=== PATIENT | male | born 1985 | race Caucasian/White ===

== ENCOUNTER 2021-05-24 20:23 | Emergency (ER) | payer BC, OTHER ==
[~2021-05-24] VITALS: Ht 185.4 cm; Wt 161.0 kg
--- NOTE | 2021-05-24 20:54 | PHYS DOC ---
General Adult EDM: Chief Complaint: BLOOD IN URINE HPI: HPI: Patient is a 35-year-old male being seen in the ER for hematuria and bilateral flank pain that started today. Patient denies dysuria, frequency/urgency, nausea, vomiting, fevers. He has no history of kidney stones. He is mildly tachycardic at heart rate of 108. He is afebrile. (NORBERT GARDNER APRN) Review of Systems: Review of Systems: 14 body systems of the review of systems have been reviewed. See HPI for pertinent positive and negative responses, otherwise all other systems are negative, nonpertinent or noncontributory (NORBERT GARDNER APRN) Physical Exam: PE: Constitutional: Well developed, well nourished, no acute distress, non-toxic appearance. [] HENT: Normocephalic, atraumatic Eyes: PERRL, EOMI, conjunctiva normal, no discharge. [] Neck: Normal range of motion, no stridor Cardiovascular:Heart rate tachycardic rhythm, no murmur [] Lungs & Thorax: Bilateral breath sounds clear to auscultation [] Abdomen: Bowel sounds normal, soft, obese, no tenderness, no masses, no pulsatile masses. [] Skin: Warm, dry, no erythema, no rash. [] Back: No tenderness, no CVA tenderness. [] Extremities: No tenderness, no cyanosis, no clubbing, ROM intact, no edema. [] Neurologic: Alert and oriented X 3, normal motor function, normal sensory function, no focal deficits noted. [] Psychologic: Affect normal, judgement normal, mood normal. [] (NORBERT GARDNER APRN) Current Patient Data: Labs: Laboratory Tests Test 05/24/21 21:15 05/24/21 21:20 Urine Collection Type Unknown Urine Color Brown Urine Clarity Cloudy Urine pH 5.5 Urine Specific [place] >=1.030 Urine Protein 100 mg/dl Urine Glucose (UA) Neg mg/dL Urine Ketones (Stick) Neg mg/dL Urine Blood Large Urine Nitrite Neg Urine Bilirubin Neg Urine Urobilinogen Dipstick 0.2 mg/dL Urine Leukocyte Esterase Neg Urine RBC >40 /HPF Urine WBC 1-4 /HPF Urine Squamous Epithelial Cells Few /LPF Urine Bacteria Mod /HPF Urine Hyaline Casts Occ /HPF Urine Waxy Casts Occ /HPF Urine Mucus Slight /LPF White Blood Count 8.4 x10^3/uL Red Blood Count 5.04 x10^6/uL Hemoglobin 14.5 g/dL Hematocrit 43.8 % Mean Corpuscular Volume 87 fL Mean Corpuscular Hemoglobin 29 pg Mean Corpuscular Hemoglobin Concent 33 g/dL Red Cell Distribution Width 13.7 % Platelet Count 244 x10^3/uL Neutrophils (%) (Auto) 67 % Lymphocytes (%) (Auto) 15 % Monocytes (%) (Auto) 16 % Eosinophils (%) (Auto) 2 % Basophils (%) (Auto) 0 % Neutrophils # (Auto) 5.7 x10^3uL Lymphocytes # (Auto) 1.3 x10^3/uL Monocytes # (Auto) 1.3 x10^3/uL Eosinophils # (Auto) 0.1 x10^3/uL Basophils # (Auto) 0.0 x10^3/uL Sodium Level 142 mmol/L Potassium Level 4.4 mmol/L Chloride Level 105 mmol/L Carbon Dioxide Level 28 mmol/L Anion Gap 9 Blood Urea Nitrogen 19 mg/dL Creatinine 1.2 mg/dL Estimated GFR (Cockcroft-Gault) 68.1 BUN/Creatinine Ratio 16 Glucose Level 111 mg/dL Calcium Level 9.4 mg/dL Total Bilirubin 0.2 mg/dL Aspartate Amino Transf (AST/SGOT) 33 U/L Alanine Aminotransferase (ALT/SGPT) 72 U/L Alkaline Phosphatase 112 U/L Total Protein 7.0 g/dL Albumin 3.6 g/dL Albumin/Globulin Ratio 1.1 Current Medications Medications (Trade) Dose Ordered Sig/[place] Route PRN Reason Start Time Stop Time Status Last Admin Dose Admin Sodium Chloride 1,000 ml @ 1,000 mls/hr 1X ONCE IV 05/24/21 21:00 05/24/21 21:59 DC 05/24/21 21:24 (NORBERT GARDNER APRN) EKG: EKG: [] (NORBERT GARDNER APRN) Radiology/Procedures: Radiology/Procedures: PROCEDURE: CT ABDOMEN PELVIS WO CONTRAST Examination: CT abdomen pelvis without contrast HISTORY: History of hematuria, bilateral flank pain COMPARISON: None available TECHNIQUE: Axial CT images of the abdomen is performed with contrast. Coronal and sagittal reformats are performed Exposure: One or more of the following individualized dose reduction techniques were utilized for this examination: 1. Automated exposure control 2. Adjustment of the mA and/or kV according to patient size 3. Use of iterative reconstruction technique FINDINGS: The bibasilar lungs are clear. No evidence of free air identified in the abdomen. The evaluation of the solid organs is limited due to lack of IV contrast. The evaluation of bowel is limited due to lack of oral contrast. Diffuse decreased attenuation noted in the liver likely hepatic steatosis. The spleen, adrenals grossly appears unremarkable. The gallbladder is mildly distended. Small hiatal hernia. The stomach is mildly distended with. Mild decreased attenuation noted in the liver. The small bowel is nondistended. Feces and gas noted in the colon. The appendix is normal. No evidence of intrarenal collecting system calculi or hydronephrosis. The urinary bladder is mildly distended. No evidence of lytic bony destructive lesion. IMPRESSION: 1. No evidence of intrarenal collecting system calculi or hydronephrosis. 2. Hepatic steatosis. 3. Small hiatal hernia. Electronically signed by: Curly Hearn MD (05/24/2021 10:19 PM) [id number] DICTATED AND SIGNED BY: CURLY HEARN MD DATE: 05/24/212210 CC: CARLOS WADE MD; EMERGENCY,DEPARTMENT; NORBERT GARDNER APRN ~MTH0 0[] (NORBERT GARDNER APRN) Heart Score: C/O Chest Pain: No Risk Factors: Risk Factors: DM, Current or recent (<one month) smoker, HTN, HLP, family history of CAD, obesity. Risk Scores: Score 0 - 3: 2.5% MACE over next 6 weeks - Discharge Home Score 4 - 6: 20.3% MACE over next 6 weeks - Admit for Clinical Observation Score 7 - 10: 72.7% MACE over next 6 weeks - Early Invasive Strategies (NORBERT GARDNER APRN) Course & Med Decision Making: Course & Med Decision Making Pertinent Labs and Imaging studies reviewed. (See chart for details) Patient is a 35-year-old male being seen in the ER for hematuria and bilateral flank pain that started today work-up in the ER consisted of blood work, urinalysis, CT scan of abdomen/pelvis to rule out a kidney stone. Patient given IV fluids in the ER. CBC unremarkable. CMP unremarkable. Urinalysis shows large amount of blood, 1-4 white blood cells and moderate bacteria. Currently a waiting CT imaging results. Patient treated with antibiotic and told to follow up with urology. 2216: I discussed patients case with Dr. Smith and he will assume patient care at this time, care transferred. (NORBERT GARDNER PERSONAL CONSULTANT) Course & Med Decision Making Did not see or evaluate patient. Did not discuss patient with [facility]IL FERTILITY SPECIALIST. Agree with SOIL FERTILITY SPECIALIST's work-up and disposition per note. (REX SMITH MD) Dragon Disclaimer: Dragon Disclaimer: This electronic medical record was generated, in whole or in part, using a voice recognition dictation system. (NORBERT GARDNER PERSONAL CONSULTANT) Departure Departure: Impression: Primary Impression: Hematuria Qualified Codes: R31.9 - Hematuria, unspecified Additional Impression: Urinary tract infection Qualified Codes: N30.01 - Acute cystitis with hematuria Disposition: HOME / SELF CARE / HOMELESS Condition: GOOD Referrals: CARLOS WADE MD (PCP) Patient Instructions: Hematuria, Adult, Urinary Tract Infection Additional Instructions: You were seen in the ER today for blood in your urine. You are being treated with an antibiotic for a mild urinary tract infection. Does not appear that you have a kidney stone but that does not mean that you did not recently passed a kidney stone. You will need to follow-up with your primary care provider on Thursday regarding your ER visit. You may need to follow-up with a urologist if you continue to have blood in your urine. You can follow-up with [facility] urology [facility]. You can call [phone] to set up an appointment. Increase your fluids. You can take Tylenol/ibuprofen for any pain. If you develop abdominal pain, intractable nausea or vomiting, worsening of blood in your urine, pain with urination, high fevers refractory to treatment or any new or worsening concerns please return to the ER. EMERGENCY DEPARTMENT GENERAL DISCHARGE INSTRUCTIONS Thank you for coming to [facility] (ED) today and trusting us with you care. We trust that you had a positivie experience in our Emergency Department. If you wish to speak to the department management, you may call the director at [phone]. YOUR FOLLOW UP INSTRUCTIONS ARE FOLLOWS: 1. Do you have a private Doctor? If you do not have a private doctor, please ask for a resource list of physicians or clinics that may be able to assist you with follow up care. 2. The Emergency Physician has interpreted your x-rays. The X-Ray specialist will also review them. If there is a change in the findings, you will be notified in 48 hours when at all possible. 3. A lab test or culture has been done, your results will be reviewed and you will be notified if you need a change in treatment. ADDITIONAL INSTRUCTIONS AND INFORMATION: 1. Your care today has been supervised by a physician who is specially trained in emergency care. Many problems require more than one evaluation for a complete diagnosis and treatment. We recommend that you schedule your follow up appointment as recommended to ensure complete treatment of you illness or injury. If you are unable to obtain follow up care and continue to have a problem, or if your condition worsens, we recommend that you return to the ED. 2. We are not able to safely determine your condition over the phone nor are we able to give sound medical advice over the phone. For these safety reasons, if you call for medical advice we will ask you to come to the ED for further evaluation. 3. If you have any questions regarding these discharge instructions please call the ED at [phone]. SAFETY INFORMATION: In the interest of safety, wellness, and injury prevention; we encourage you to wear your sealbelt, if you smoke; quite smoking, and we encourage family to use a protective helmet for bicycling and other sporting events that present an increased risk for head injury. IF YOUR SYMPTOMS WORSEN OR NEW SYMPTOMS DEVELOP, OR YOU HAVE CONCERNS ABOUT YOUR CONDITION; OR IF YOUR CONDITION WORSENS WHILE YOU ARE WAITING FOR YOUR FOLLOW UP APPOINTMENT; EITHER CONTACT YOUR PRIMARY CARE DOCTOR, THE PHYSICIAN WHOSE NAME AND NUMBER YOU WERE GIVEN, OR RETURN TO THE ED IMMEDIATELY. Scripts Cephalexin (CEPHALEXIN) 500 Mg Tablet 1 TAB PO QID for UTI for 7 Days, #28 TAB 0 Refills Prov: NORBERT GARDNER APRN 05/24/21 NORBERT GARDNER APRN May 24, 2021 20:54 REX SMITH MD May 24, 2021 23:35
[2021-05-24] MEDS ORDERED: IV NORMAL SALINE 1,000ML 1,000 ML IV ONE (21:00)
[2021-05-24 21:47] LABS: BASO % 0 % (0-3); EOS # 0.1 x10^3/uL (0.0-0.7); EOS % 2 % (0-3); HEMATOCRIT 43.8 % (39.0-53.0); HEMOGLOBIN 14.5 g/dL (13.0-17.5); LYMPH # 1.3 x10^3/uL (1.0-4.8); LYMPH % 15 % (24-48); MEAN CORPUSCULAR HEMOGLOBIN 29 pg (25-35); MEAN CORPUSCULAR HGB CONC 33 g/dL (31-37); MEAN CORPUSCULAR VOLUME 87 fL (79-100); MONO # 1.3 x10^3/uL (0.0-1.1); MONO % 16 % (0-9); NEUT # 5.7 x10^3uL (1.8-7.7); NEUT % 67 % (31-73); PLATELET COUNT 244 x10^3/uL (140-400); RED BLOOD COUNT 5.04 x10^6/uL (4.30-5.70); RED CELL DISTRIBUTION WIDTH 13.7 % (11.5-14.5); WHITE BLOOD COUNT 8.4 x10^3/uL (4.0-11.0)
[2021-05-24 21:56] LABS: CLARITY,URINE CLOUDY; COLOR,URINE BROWN
[2021-05-24 21:57] LABS: BILIRUBIN,URINE NEG (NEG); GLUCOSE,URINE NEG (NEG); NITRITE,URINE NEG (NEG); UROBILINOGEN,URINE 0.2 mg/dL (0.2 mg/dL)
[2021-05-24 21:59] LABS: CALCIUM 9.4 mg/dL (8.5-10.1); CREATININE 1.2 mg/dL (0.7-1.3); GFR 68.1; POTASSIUM 4.4 mmol/L (3.5-5.1)
[2021-05-24 22:00] LABS: RBC,URINE >40 /HPF (0-2)
[2021-05-24 22:01] LABS: HYALINE CASTS, URINE OCC /HPF; SQUAMOUS EPITHELIAL CELL,UR FEW /LPF; WAXY CASTS,URINE OCC /HPF
[2021-05-24 22:02] LABS: BACTERIA,URINE MOD /HPF (0-FEW)
[2021-05-24 22:06] LABS: ALBUMIN 3.6 g/dL (3.4-5.0); ALBUMIN/GLOBULIN RATIO 1.1 (1.0-1.7); TOTAL BILIRUBIN 0.2 mg/dL (0.2-1.0)
--- NOTE | 2021-05-24 22:22 | RAD ---
Examination: CT abdomen pelvis without contrast HISTORY: History of hematuria, bilateral flank pain COMPARISON: None available TECHNIQUE: Axial CT images of the abdomen is performed with contrast. Coronal and sagittal reformats are performed Exposure: One or more of the following individualized dose reduction techniques were utilized for thi s examination: 1. Automated exposure control 2. Adjustment of the mA and/or kV according to patient size 3. Use of iterative reconstruction technique FINDINGS: The bibasilar lungs are clear. No evidence of free air identified in the abdomen. The evaluation of the solid organs is limited due to lack of IV contrast. The evaluation of bowel is limited due to lack of oral contrast. Diffuse decreased attenuation noted in the liver likely hepatic steatosis. The spleen, adrenals grossly appears unremarkable. The gallbladder is mildly distended. Small hiatal hernia. The stomach is mildly distended with. Mild decreased attenuation noted in the li malia. The small bowel is nondistended. Feces and gas noted in the colon. The appendix is normal. No evidenc e of intrarenal collecting system calculi or hydronephrosis. The urinary bladder is mildly distended. No evidence of lytic bony destructive lesion. IMPRESSION: 1. No evidence of intrarenal collecting system calculi or hydronephrosis. 2. Hepatic steatosis. 3. Small hiatal hernia. Electronically signed by: Curly Etienne MD (05/24/2021 10:19 PM) [id number]
[2021-05-24] MEDS ORDERED: CEPH500T PO (22:26)
[2021-05-24] MEDS ORDERED: CEPHALEXIN 250 MG CAPSULE ONE (22:33)
[2021-05-24 22:35] VITALS: BP 131/77
[2021-05-24] MEDS ORDERED: CEPHALEXIN 250 MG CAPSULE PO ONE (22:45)
== END 2021-05-24 22:45 | disposition home or self-care (01) ==
LOC: ER 20:30
DX: N39.0 Urinary tract infection, site not specified (principal); Z87.442 Personal history of urinary calculi
CPT/HCPCS: 36415; 74176; 80053; 81001; 85025; 87086; 96360; 99284; J7030